=== PATIENT | male | born 1945 | race Caucasian/White ===

== ENCOUNTER 2017-02-27 14:11 | Outpatient (CLI) | payer OTHER | END 2017-02-27 23:59 | disposition home or self-care (01) | LOC: LAB 14:11 | PROVIDERS: ATTEND Family Medicine | DX: S00.10XA Contusion of unspecified eyelid and periocular area, initial encounter (principal); X58.XXXA Exposure to other specified factors, initial encounter; Y93.89 Activity, other specified; Y92.89 Other specified places as the place of occurrence of the external cause; Y99.8 Other external cause status | CPT/HCPCS: 36415 ==

== ENCOUNTER 2017-09-11 09:37 | Outpatient (CLI) | payer OTHER, MEDICARE | END 2017-09-11 23:59 | disposition home or self-care (01) | LOC: LAB 09:37 | PROVIDERS: ATTEND Family Medicine | DX: C91.10 Chronic lymphocytic leukemia of B-cell type not having achieved remission (principal) | CPT/HCPCS: 36415 ==

== ENCOUNTER 2018-03-06 09:49 | Outpatient (CLI) | payer OTHER | END 2018-03-06 23:59 | disposition home or self-care (01) | LOC: LAB 09:49 | PROVIDERS: ATTEND Family Medicine | DX: C95.10 Chronic leukemia of unspecified cell type not having achieved remission (principal); F17.210 Nicotine dependence, cigarettes, uncomplicated | CPT/HCPCS: 36415 ==

== ENCOUNTER 2018-07-17 09:39 | Outpatient (CLI) | payer OTHER | END 2018-07-17 23:59 | disposition home or self-care (01) | LOC: LAB 09:39 | DX: C92.10 Chronic myeloid leukemia, BCR/ABL-positive, not having achieved remission (principal); F17.200 Nicotine dependence, unspecified, uncomplicated | CPT/HCPCS: 36415 ==

== ENCOUNTER 2018-11-20 09:35 | Outpatient (CLI) | payer OTHER, MEDICARE | END 2018-11-20 23:59 | disposition home or self-care (01) | LOC: LAB 09:35 | PROVIDERS: ATTEND Family Medicine | DX: C92.10 Chronic myeloid leukemia, BCR/ABL-positive, not having achieved remission (principal) | CPT/HCPCS: 36415 ==

== ENCOUNTER 2019-03-19 09:36 | Outpatient (CLI) | payer OTHER, MEDICARE | END 2019-03-19 23:59 | disposition home or self-care (01) | LOC: LAB 09:36 → LAB SPEC 23:59 | PROVIDERS: ATTEND Family Medicine | DX: C95.10 Chronic leukemia of unspecified cell type not having achieved remission (principal) | CPT/HCPCS: 36415 ==

== ENCOUNTER 2019-07-30 09:14 | Outpatient (CLI) | payer OTHER | END 2019-07-30 23:59 | disposition home or self-care (01) | LOC: LAB 09:14 | PROVIDERS: ATTEND Family Medicine | DX: C95.10 Chronic leukemia of unspecified cell type not having achieved remission (principal) | CPT/HCPCS: 36415 ==

== ENCOUNTER 2022-03-16 08:00 | Day surgery (SDC) | payer OTHER ==
[~2022-03-16] VITALS: Ht 167.6 cm; Wt 52.0 kg
[2022-03-16 08:10] VITALS: BP 88/55
[2022-03-16] MEDS ORDERED: MIDAZolam 1 MG/ML 5ML VIAL ONE (08:22)
[2022-03-16] MEDS ORDERED: fentaNYL/PF 50MCG/1 ML 2ML syringe ONE (08:22)
[2022-03-16] MEDS ORDERED: METO50TA16 PO (08:24)
[2022-03-16] MEDS ORDERED: SUVO10TA PO (08:24)
[2022-03-16] MEDS ORDERED: TRAZ-251 PO (08:24)
[2022-03-16] MEDS ORDERED: ATOR40TA72 (08:24)
[2022-03-16] MEDS ORDERED: ERGO500056 PO (08:24)
[2022-03-16] MEDS ORDERED: HYDR-4070 PO (08:24)
[2022-03-16] MEDS ORDERED: VALS160T30 (08:24)
[2022-03-16] MEDS ORDERED: FLO0.4C (08:24)
[2022-03-16] MEDS ORDERED: METO-384 PO (08:24)
[2022-03-16] MEDS ORDERED: ALLO100T PO (08:25)
[2022-03-16] MEDS ORDERED: SODI650T29 PO (08:26)
[2022-03-16] MEDS ORDERED: CLOP-32 PO (08:27)
[2022-03-16 09:50] VITALS: BP 98/55
[2022-03-16 10:00] VITALS: BP 99/50
[2022-03-16 10:10] VITALS: BP 107/53
[2022-03-16 10:20] VITALS: BP 91/48
== END 2022-03-16 10:25 | disposition home or self-care (01) ==
LOC: GI LAB 08:00
PROVIDERS: ATTEND Internal Medicine Gastroenterology
DX: D50.9 Iron deficiency anemia, unspecified (principal); K52.9 Noninfective gastroenteritis and colitis, unspecified; D12.0 Benign neoplasm of cecum; D12.2 Benign neoplasm of ascending colon; C20 Malignant neoplasm of rectum; K57.30 Diverticulosis of large intestine without perforation or abscess without bleeding; K64.1 Second degree hemorrhoids; I10 Essential (primary) hypertension; J44.9 Chronic obstructive pulmonary disease, unspecified; Z87.891 Personal history of nicotine dependence; Z86.73 Personal history of transient ischemic attack (TIA), and cerebral infarction without residual deficits; Z72.89 Other problems related to lifestyle
CPT/HCPCS: 45380; 45381; 99152; 99153; J2250; J3010; J7030; Z7512; A4620